=== PATIENT | female | born 1990 | race African-American/Black ===

== ENCOUNTER 2019-08-30 01:26 | Emergency (ER) | payer OTHER ==
[~2019-08-30] VITALS: Ht 165.1 cm; Wt 130.0 kg
[2019-08-30] MEDS ORDERED: SODIUM CHLORIDE 0.9% 1,000 ML IV ONE ×2 (02:34→02:45)
[2019-08-30 02:48] LABS: BASOPHILS % 1.1 % (0.0-2.0); EOSINOPHILS % 0.9 % (0.0-5.0); HEMATOCRIT. 32.5 % (36.0-48.0); LYMPHOCYTES % 36.1 % (20.0-50.0); MEAN CORPUSCULAR VOLUME 82.7 fL (81.0-99.0); MEAN PLATELET VOLUME 8.8 fl (7.4-10.4); MONOCYTES % 4.8 % (2.0-8.0); NEUTROPHILS % 57.1 % (40.0-76.0); PLATELET 258 x1000/uL (130-400); RED BLOOD CELL COUNT 3.92 mill/uL (4.2-5.4); RED CELL DISTRIBUTION WIDTH 13.9 % (11.6-14.6)
[2019-08-30 02:56] LABS: PROTHROMBIN TIME 10.7 sec (9.6-11.0)
[2019-08-30 02:57] LABS: CHLORIDE 106 mEq/L (98-107)
[2019-08-30 03:20] LABS: CLARITY URINE CLOUDY (CLEAR); COLOR URINE YELLOW (YELLOW); KETONES URINE NEGATIVE (NEGATIVE); LEUKOCYTE ESTERASE URINE TRACE (NEGATIVE); NITRITE URINE NEGATIVE (NEGATIVE); OCCULT BLOOD URINE 3+ (NEGATIVE); PROTEIN URINE NEGATIVE (NEGATIVE); SPECIFIC GRAVITY URINE 1.021 (1.005-1.030); UROBILINOGEN URINE 0.2 E.U./dL (0.2-1.0)
[2019-08-30 05:31] VITALS: BP 124/78
== END 2019-08-30 05:32 | disposition home or self-care (01) ==
LOC: ER 01:26
DX: E11.65 Type 2 diabetes mellitus with hyperglycemia (principal); N93.9 Abnormal uterine and vaginal bleeding, unspecified; J45.909 Unspecified asthma, uncomplicated
CPT/HCPCS: 36415; 80053; 81003; 81025; 82962; 83690; 85025; 85610; 96360; 99283; J7030; Z7610

== ENCOUNTER 2019-11-08 13:12 | Emergency (ER) | payer OTHER ==
[~2019-11-08] VITALS: Ht 165.1 cm; Wt 130.0 kg
[2019-11-08] MEDS ORDERED: METF-416 PO (14:16)
[2019-11-08] MEDS ORDERED: PREDNISONE 20MG TABLET PO ONE (19:30)
[2019-11-08] MEDS ORDERED: LEVOFLOXACIN 500MG TABLET PO ONE (19:30)
[2019-11-08] MEDS ORDERED: IPRATROPIUM/ALBUTEROL 0.5-3(2.5)MG/3ML NEB HHN ONE (19:30)
[2019-11-08] MEDS ORDERED: ACETAMINOPHEN 325MG TABLET PO ONE (21:15)
[2019-11-08] MEDS ORDERED: IBUPROFEN 800MG TABLET PO ONE (21:15)
[2019-11-08 21:41] VITALS: BP 125/75
== END 2019-11-08 21:43 | disposition home or self-care (01) ==
LOC: ER 13:12
DX: J40 Bronchitis, not specified as acute or chronic (principal); R05 Cough; R07.89 Other chest pain; E11.9 Type 2 diabetes mellitus without complications
CPT/HCPCS: 81025; 94640; 99284; J7512; J7620; Z7610